=== PATIENT | male | born 1995 | race Hispanic/Latino ===

== ENCOUNTER 2023-12-27 08:23 | Emergency (ER) | payer OTHER ==
--- NOTE | 2023-12-27 11:20 | RAD REPORT ---
Procedure: Chest Pa And Lat (2 Views) History: Cough Comparison: none The lungs appear clear of acute infiltrate. No significant pleural effusion noted. The heart is normal size. IMPRESSION: No acute abnormality is displayed.
--- NOTE | 2023-12-27 11:32 | EDPHYS ---
Physician Documentation [facility] Name: Freddy Vuong Age: 28 yrs Sex: Male : 1995 Arrival Date: 12/27/2023 Time: 08:23 Bed 18 Private MD: ED Physician Sidney Lester HPI: 12/26 10:16 This 28 yrs old Male presents to ER via Ambulatory with complaints of Cough. rn 10:16 The patient or guardian reports cough, described as moderate, with productive sputum. rn Onset: The symptoms/episode began/occurred 1 week(s) ago. Severity of symptoms: At their worst the symptoms were mild, in the emergency department the symptoms are unchanged. Modifying factors: The symptoms are alleviated by nothing, the symptoms are aggravated by nothing. Associated signs and symptoms: Pertinent positives: rhinorrhea, Pertinent negatives: fever. The patient has not experienced similar symptoms in the past. The patient has been recently seen by a physician:. Patient reports seen recently, was prescribed steroids. States no antibiotics prescribed at that time. Given cough medication but no longer taking it. Reports cough has worsened, is productive with green sputum. No shortness of breath.. Historical: - Allergies: 08:35 No Known Allergies; kc6 - Home Meds: 08:35 None [Active]; kc6 - PMHx: 08:35 Hypertensive disorder; Pyloric Stenosis; kc6 - PSHx: 08:35 None; kc6 - Immunization history:: Adult Immunizations not up to date. - Infectious Disease History:: Denies. - Social history:: Smoking status: Patient denies any tobacco usage or history of. - Family history:: not pertinent. - Hospitalizations: : No recent hospitalization is reported. ROS: 10:16 Constitutional: Negative for fever, chills, and weight loss, Cardiovascular: Negative rn for chest pain, palpitations, and edema, Respiratory: Positive for cough Abdomen/GI: Negative for abdominal pain, nausea, vomiting, diarrhea, and constipation, MS/Extremity: Negative for injury and deformity, Skin: Negative for injury, rash, and discoloration, Neuro: Positive for generalized malaise Exam: 10:16 Constitutional: This is a well developed, well nourished patient who is awake, alert, rn and in no acute distress. ENT: No stridor. Cardiovascular: Regular rate and rhythm. No pulse deficits. Respiratory: No increased work of breathing, no retractions or nasal flaring. Neuro: Awake and alert, GCS 15 Vital Signs: 08:33 BP 157 / 107; Pulse 92; Resp 18 S; Temp 97.9(O); Pulse Ox 97% on R/A; Weight 131.54 kg kc6 (R); Height 5 ft. 9 in. (R); 08:39 BP 125 / 80; kc6 09:52 BP 140 / 101; Pulse 90; Resp 15 S; Pulse Ox 99% on R/A; kc6 10:29 BP 120 / 76; Pulse 85; Resp 19 S; Pulse Ox 100% on R/A; kc6 08:33 Body Mass Index 42.83 (131.54 kg, 175.26 cm) kc6 MDM: 08:28 Patient medically screened. rn 11:29 Differential Diagnosis: Bronchitis Upper Respiratory Infection Viral Syndrome rn Pneumonia. Data reviewed: vital signs, nurses notes, radiologic studies, plain films, and as a result, I will discharge patient. Counseling: I had a detailed discussion with the patient and/or guardian regarding the historical points, exam findings, and any diagnostic results supporting the discharge/admit diagnosis, radiology results, the need for outpatient follow up, to return to the emergency department if symptoms worsen or persist or if there are any questions or concerns that arise at home. Special discussion: I discussed with the patient/guardian in detail that at this point there is no indication for admission to the hospital. It is understood, however, that if the symptoms persist or worsen the patient needs to return immediately for re-evaluation. ED course: No oxygen requirement, stable vital signs, chest x-ray clear. No indication for antibiotics or emergent admission at this time.. 12/26 08:49 Order name: XRAY Chest Pa And Lat (2 Views); Complete Time: 11:24 rn Administered Medications: No medications were administered Disposition Summary: 12/27/23 11:31 Discharge Ordered Notes: Location: Home rn Problem: new rn Symptoms: have improved rn Condition: Stable rn Diagnosis - Cough rn Followup: rn - With: Private Physician - When: As needed - Reason: Recheck today's complaints, Re-evaluation by your physician Discharge Instructions: - Discharge Summary Sheet rn - Cough, Adult rn Forms: - Medication Reconciliation Form rn - Antibiotic blow torch burner - Prescription Opioid Use rn - Patient Portal Instructions rn - Leadership Thank You Letter rn - Work release form kc6 Signatures: Dispatcher [employer] Sidney Rodriguez MD MD rn Campbell, Kaitlyn, RN RN kc6
--- NOTE | 2023-12-27 11:32 | ER ---
Nurse's Notes [facility] Name: Freddy Vuong Age: 28 yrs Sex: Male : 1995 Arrival Date: 12/27/2023 Time: 08:23 Bed 18 Private MD: Diagnosis: Cough Presentation: 12/26 08:33 Chief complaint: Patient states: cough, congestion, fever, chills since 12/23. states he kc6 was diagnosed with bronchitis at urgent care and set home with antibiotics and steroids. pt reports all symptoms have resolved except for the productive cough. Coronavirus screen: At this time, the client does not indicate any symptoms associated with coronavirus-19. Ebola Screen: No symptoms or risks identified at this time. Initial Sepsis Screen: Does the patient meet any 2 criteria? No. Patient's initial sepsis screen is negative. Does the patient have a suspected source of infection? No. Patient's initial sepsis screen is negative. Risk Assessment: Do you want to hurt yourself or someone else? Patient reports no desire to harm self or others. Onset of symptoms was December 27, 2023. 08:33 Method Of Arrival: Ambulatory 6 08:33 Acuity: JOSE LUIS 3 kc6 Triage Assessment: 08:35 General: Appears in no apparent distress. comfortable, obese, well groomed, well kc6 developed, Behavior is calm, cooperative, appropriate for age. Pain: Denies pain. EENT: No signs and/or symptoms were reported regarding the EENT system. Neuro: Level of Consciousness is awake, alert, obeys commands, Oriented to person, place, time, situation, Appropriate for age. Cardiovascular: Capillary refill < 3 seconds. Respiratory: Reports cough that is productive, persistent Airway is patent Trachea midline Respiratory effort is even, unlabored, Respiratory pattern is regular, symmetrical. GI: No signs and/or symptoms were reported involving the gastrointestinal system. : No signs and/or symptoms were reported regarding the genitourinary system. Derm: No signs and/or symptoms reported regarding the dermatologic system. Skin is intact, is healthy with good turgor, Skin is pink, warm \T\ dry. Musculoskeletal: No signs and/or symptoms reported regarding the musculoskeletal system. Circulation, motion, and sensation intact. Capillary refill < 3 seconds, Range of motion: intact in all extremities. Historical: - Allergies: 08:35 No Known Allergies; kc6 - Home Meds: 08:35 None [Active]; kc6 - PMHx: 08:35 Hypertensive disorder; Pyloric Stenosis; 6 - PSHx: 08:35 None; kc6 - Immunization history:: Adult Immunizations not up to date. - Infectious Disease History:: Denies. - Social history:: Smoking status: Patient denies any tobacco usage or history of. - Family history:: not pertinent. - Hospitalizations: : No recent hospitalization is reported. Screenin:37 [facility] ED Fall Risk Assessment (Adult) History of falling in the last 3 months, kc6 including since admission No falls in past 3 months (0 pts) Confusion or Disorientation No (0 pts) Intoxicated or Sedated No (0 pts) Impaired Gait No (0 pts) Mobility Assist Device Used No (0 pt) Altered Elimination No (0 pt) Score/Fall Risk Level 0 - 2 = Low Risk Oriented to surroundings. Abuse screen: Denies threats or abuse. Denies injuries from another. Nutritional screening: No deficits noted. Tuberculosis screening: No symptoms or risk factors identified. Assessment: 08:36 Reassessment: please see triage. [facility] 09:51 Reassessment: Patient appears in no apparent distress at this time. No changes from [facility] previously documented assessment. Patient and/or family updated on plan of care and expected duration. Pain level reassessed. Patient is alert, oriented x 3, equal unlabored respirations, skin warm/dry/pink. 10:29 Reassessment: Patient appears in no apparent distress at this time. No changes from [facility] previously documented assessment. Patient and/or family updated on plan of care and expected duration. Pain level reassessed. Patient is alert, oriented x 3, equal unlabored respirations, skin warm/dry/pink. 11:42 Reassessment: Patient appears in no apparent distress at this time. No changes from [facility] previously documented assessment. Patient and/or family updated on plan of care and expected duration. Pain level reassessed. Patient is alert, oriented x 3, equal unlabored respirations, skin warm/dry/pink. Vital Signs: 08:33 BP 157 / 107; Pulse 92; Resp 18 S; Temp 97.9(O); Pulse Ox 97% on R/A; Weight 131.54 kg kc6 (R); Height 5 ft. 9 in. (R); 08:39 BP 125 / 80; kc6 09:52 BP 140 / 101; Pulse 90; Resp 15 S; Pulse Ox 99% on R/A; kc6 10:29 BP 120 / 76; Pulse 85; Resp 19 S; Pulse Ox 100% on R/A; kc6 08:33 Body Mass Index 42.83 (131.54 kg, 175.26 cm) kc6 ED Course: 08:26 Patient arrived in ED. mg5 08:28 Sidney Lester MD is Attending Physician. rn 08:30 Viji Potter, JORDYN is Primary Nurse. kc6 08:35 Triage completed. kc6 08:35 Arm band placed on. kc6 08:36 Patient has correct armband on for positive identification. Bed in low position. Call kc6 light in reach. Side rails up X 1. Pulse ox on. NIBP on. Door closed. Noise minimized. Lights dimmed. Pillow given. 08:36 Patient maintains SpO2 saturation greater than 95% on room air. kc6 10:51 XRAY Chest Pa And Lat (2 Views) In Process Unspecified. EDMS 11:42 No provider procedures requiring assistance completed. Patient did not have IV access kc6 during this emergency room visit. Administered Medications: No medications were administered Medication: 11:42 VIS not applicable for this client. kc6 Outcome: 11:31 Discharge ordered by . rn 11:42 Discharged to home ambulatory, kc6 11:42 Condition: good 11:42 Discharge instructions given to patient, Instructed on discharge instructions, follow up and referral plans. Demonstrated understanding of instructions, 11:43 Patient left the ED. kc6 Signatures: Dispatcher [employer] EDMS Sideny Lester MD MD rn Viji Potter RN RN kc6 Jesus Jeane mg5
[2023-12-27 23:45] VITALS: TEMP 97.9
[2023-12-27 23:50] VITALS: BP 120/76; O2SAT 100
== END 2023-12-27 11:43 | disposition home or self-care (01) ==
LOC: ER 08:23
DX: R05.9 Cough, unspecified (principal); R53.81 Other malaise; I10 Essential (primary) hypertension
CPT/HCPCS: 71046; 99283